=== PATIENT | female | born 1995 | race Two or more races ===

== ENCOUNTER 2021-02-22 03:19 | Emergency (ER) | payer OTHER ==
[~2021-02-22] VITALS: Ht 162.6 cm; Wt 73.5 kg
[2021-02-22 04:06] VITALS: BP 94/50
[2021-02-22] MEDS ORDERED: SODIUM CHLORIDE 0.9% 1,000 ML IV ONE (04:15)
[2021-02-22] MEDS ORDERED: ONDANSETRON HCL 4 MG/2 ML VIAL IV ONE (04:15)
[2021-02-22] MEDS ORDERED: fentaNYL CITRATE 100 MCG/2 ML VL IV ONE (04:15)
== END 2021-02-22 06:01 | disposition home or self-care (01) ==
LOC: ER 03:21
DX: S42.302A Unspecified fracture of shaft of humerus, left arm, initial encounter for closed fracture (principal); F17.210 Nicotine dependence, cigarettes, uncomplicated; W01.0XXA Fall on same level from slipping, tripping and stumbling without subsequent striking against object, initial encounter; Y93.89 Activity, other specified; Y92.89 Other specified places as the place of occurrence of the external cause; Y99.8 Other external cause status
CPT/HCPCS: 73060; 73080; 96374; 96375; 99284; J2405; J3010

== ENCOUNTER 2023-04-03 19:49 | Emergency (ER) | payer MEDICAID, OTHER ==
[~2023-04-03] VITALS: Ht 162.6 cm; Wt 78.2 kg
[2023-04-04] MEDS ORDERED: ONDANSETRON ODT 4 MG TAB PO ONE (01:45)
[2023-04-04] MEDS ORDERED: HYDROcodone-ACET 5/325MG TAB PO ONE (01:45)
[2023-04-04] MEDS ORDERED: TETANUS-DIPTH-ACEL PERTUSSIS 0.5ML SYR Tdap IM ONE (01:45)
[2023-04-04] MEDS ORDERED: BACITRACIN TOP OINT 1 UD PKG TOP ONE ×2 (01:45)
[2023-04-04 03:13] VITALS: BP 117/73
== END 2023-04-04 02:30 | disposition left against medical advice (07) ==
LOC: ER 19:49
DX: T23.242A Burn of second degree of multiple left fingers (nail), including thumb, initial encounter (principal); F17.210 Nicotine dependence, cigarettes, uncomplicated; Z88.1 Allergy status to other antibiotic agents; Z88.2 Allergy status to sulfonamides; X10.2XXA Contact with fats and cooking oils, initial encounter; Y93.89 Activity, other specified; Y92.89 Other specified places as the place of occurrence of the external cause; Y99.8 Other external cause status
CPT/HCPCS: 81025; 90471; 90715; 99284; Q0162